=== PATIENT | male | born 1960 | race Caucasian/White ===

== ENCOUNTER → 2017-12-30 | Outpatient (CLI) | payer BC ==
[~2017-12-30] VITALS: Ht 180.3 cm; Wt 126.6 kg
[~2017-12-30] MED LIST: BENICAR 20MG TA20 MG PO; CELEBREX 200MG200 MG PO; FLOMAX 0.40.4 MG/CAP PO; LIPITOR20 MG PO; NORCO 325 MG-7.1 TAB PO; NORVASC 10MG10 MG PO; PRILOTC PO; ZOFRAN 4MG T4 MG/TAB
[2017-12-30 09:27] VITALS: BP 142/93; PULSE 60
[2017-12-30 10:49] VITALS: BP 134/95; PULSE 66
[2017-12-30 10:50] VITALS: BP 134/95; PULSE 60
[2017-12-30 11:05] VITALS: BP 127/86; PULSE 63; TEMP 97.5
[2017-12-30 11:30] VITALS: BP 111/83; BP 129/78; PULSE 60
[2017-12-30 12:00] VITALS: BP 111/83; PULSE 60
== END ==
LOC: COL.RAD 08:56
DX: M50.223 Other cervical disc displacement at C6-C7 level (principal); M50.31 Other cervical disc degeneration, high cervical region; M48.03 Spinal stenosis, cervicothoracic region; Z98.1 Arthrodesis status; Z96.9 Presence of functional implant, unspecified